=== PATIENT | male | born 2000 | race Hispanic/Latino ===

== ENCOUNTER 2021-03-24 23:46 | Emergency (ER) | payer OTHER ==
[~2021-03-24] VITALS: Ht 180.3 cm; Wt 77.1 kg
[2021-03-25] MEDS ORDERED: IBUPROFEN 600 MG TAB ONE (01:01)
[2021-03-25] MEDS ORDERED: AZITHROMYCIN250 MG PO (01:29)
[2021-03-25] MEDS ORDERED: IBUPROFEN 600 MG TAB PO STA (01:44)
[2021-03-25] MEDS ORDERED: ACETAMINOPHEN 325 MG TAB PO ONE (01:45)
[2021-03-25] MEDS ORDERED: ACETAMINOPHEN 325 MG TAB ONE (01:51)
== END 2021-03-25 01:47 | disposition home or self-care (01) ==
LOC: FSED 03-25 00:15
DX: R50.9 Fever, unspecified (principal); J02.0 Streptococcal pharyngitis; R51.9 Headache, unspecified
CPT/HCPCS: 83518; 99283

== ENCOUNTER 2021-07-03 10:54 | Emergency (ER) | payer OTHER ==
[~2021-07-03] VITALS: Ht 177.8 cm; Wt 73.5 kg
[~2021-07-03 10:54] MED LIST: AZITHROMYCIN250 MG PO
[2021-07-03] MEDS ORDERED: IBUPROFEN 600 MG TAB PO STA (12:13)
[2021-07-03] MEDS ORDERED: DEXAMETHASONE SOD PHOS 10 MG/1 ML VIAL IM ONE (12:15)
[2021-07-03] MEDS ORDERED: PENICILLIN V P500 MG PO (12:27)
[2021-07-03] MEDS ORDERED: DEXAMETHASONE SOD PHOS INJ 4 MG/ML SDV ONE (12:49)
[2021-07-03] MEDS ORDERED: IBUPROFEN 600 MG TAB ONE (12:49)
== END 2021-07-03 12:48 | disposition home or self-care (01) ==
LOC: FSED 11:45
DX: J02.0 Streptococcal pharyngitis (principal); R50.9 Fever, unspecified; F17.210 Nicotine dependence, cigarettes, uncomplicated
CPT/HCPCS: 83518; 96372; 99283; J1100

== ENCOUNTER 2021-07-05 20:25 | Observation (INO) | payer OTHER ==
[~2021-07-05] VITALS: Ht 177.8 cm; Wt 73.5 kg
[~2021-07-05 20:25] MED LIST changes: +PENICILLIN V P500 MG PO
[2021-07-05] MEDS ORDERED: DEXAMETHASONE SOD PHOS 10 MG/1 ML VIAL IM STA (21:44)
[2021-07-05] MEDS ORDERED: Clindamycin INJ 900 MG 900 MG in SODIUM CHLORIDE 0.9% 50ML 50 ML IV STA (21:44)
[2021-07-05] MEDS ORDERED: DEXAMETHASONE SOD PHOS 10 MG/1 ML VIAL ONE (21:54)
[2021-07-05 21:56] LABS: BASOPHILS # (AUTO) 0.1 (0.0-0.1); BASOPHILS % 0.4 % (0.0-1.0); EOSINOPHILS # (AUTO) 0.2 (0.0-0.4); EOSINOPHILS % 0.9 % (0.0-6.0); HEMATOCRIT 46.6 % (38.2-49.6); HEMOGLOBIN 16.5 g/dL (14.0-18.0); LYMPHOCYTES # (AUTO) 2.2 (1.0-3.2); LYMPHOCYTES % 12.2 % (18.0-39.1); MEAN CORPUSCULAR HEMOGLOBIN 30.4 pg (28-32); MEAN CORPUSCULAR HGB CONC 35.4 g/dL (31-35); MEAN CORPUSCULAR VOLUME 85.8 fL (81-99); MONOCYTES # (AUTO) 1.5 (0.2-0.8); MONOCYTES % 8.1 % (4.4-11.3); PLATELET COUNT 313 x10e3/uL (140-360); RED BLOOD COUNT 5.43 x10e6/uL (4.3-5.7); RED CELL DISTRIBUTION WIDTH 13.1 % (11.7-14.4)
[2021-07-05] MEDS ORDERED: Clindamycin INJ 300 MG/50 ML 50 ML IV ONE (21:58)
[2021-07-05 22:11] LABS: ALBUMIN 4.3 g/dL (3.5-5.0); ALBUMIN/GLOBULIN RATIO 1.1 (0.8-2.0); CALCIUM 9.5 mg/dL (8.4-10.2); CREATININE, SERUM 0.82 mg/dL (0.72-1.25)
[2021-07-05] MEDS ORDERED: SODIUM CHLORIDE 0.9% 50ML 50 ML ONE (22:47)
[2021-07-05] MEDS ORDERED: IOPAMIDOL 370 MG/ML 200 ML INFUS..BTL INJ ONE (22:48)
[2021-07-05] MEDS ORDERED: ONDANSETRON HCL INJ 2MG/ML 2ML 2 MG/ML VIAL IV PRN (23:45)
[2021-07-05] MEDS: SODIUM CHLORIDE 0.9% 1000ML 1,000 ML IV SCH (23:45)
[2021-07-05] MEDS ORDERED: Morphine 4mg Syringe 4 MG/ML INJ IV PRN (23:45)
[2021-07-06] VITALS (8 sets, daily range): BP systolic 115–121; BP diastolic 61–73
[2021-07-06] MEDS: Clindamycin INJ 600 MG 600 MG in SODIUM CHLORIDE 0.9% 50ML 50 ML IV SCH ×4 (00:30→17:53)
[2021-07-06] MEDS: METHYLPREDNISOLONE SOD SUCC 40 MG/ML VIAL 1ML IV SCH ×4 (00:30→17:53)
[2021-07-06] MEDS ORDERED: METOPROLOL TARTRATE INJ 1 MG/ML VIAL IV PRN (00:45)
[2021-07-06] MEDS ORDERED: POLYETHYLENE GLYCOL 3350 17 GM PACK PO PRN (00:45)
[2021-07-06] MEDS ORDERED: ACETAMINOPHEN 325 MG TAB PO PRN (00:45)
[2021-07-06 01:41] LABS: CLARITY,URINE CLEAR (CLEAR); COLOR,URINE AMBER (YELLOW); KETONES,URINE 2+ (NEGATIVE); LEUKOCYTE ESTERASE ,URINE NEGATIVE (NEGATIVE); NITRITE,URINE NEGATIVE (NEGATIVE); PROTEIN,URINE DIPSTICK NEGATIVE (NEGATIVE); URINE UROBILINOGEN >=8 mg/dL (0.2 - 1)
[2021-07-06 01:45] LABS: AMORPHOUS SEDIMENT,URINE FEW (FEW); BACTERIA,URINE FEW /HPF; EPITHELIAL CELLS,URINE FEW /LPF; RBC,URINE 0-5 /HPF (0-5); WBC,URINE (MAN) 0-5 /HPF (0-5)
[2021-07-06] MEDS ORDERED: CITALOPRAM HBR20 MG PO (02:44)
[2021-07-06] MEDS: DOCUSATE SODIUM 100 MG CAP PO SCH ×2 (08:11→16:25)
[2021-07-06] MEDS: FAMOTIDINE 20 MG TAB PO SCH ×2 (08:11→16:25)
[2021-07-06] MEDS: SODIUM CHLORIDE 0.9% 1000ML 1,000 ML IV SCH ×3 (08:11→23:57)
[2021-07-06 08:21] LABS: BASOPHILS % 0.1 % (0.0-1.0); HEMATOCRIT 47.7 % (38.2-49.6); HEMOGLOBIN 16.5 g/dL (14.0-18.0); LYMPHOCYTES # (AUTO) 1.2 (1.0-3.2); LYMPHOCYTES % 8.8 % (18.0-39.1); MEAN CORPUSCULAR HEMOGLOBIN 30.2 pg (28-32); MEAN CORPUSCULAR HGB CONC 34.6 g/dL (31-35); MEAN CORPUSCULAR VOLUME 87.2 fL (81-99); MONOCYTES # (AUTO) 0.1 (0.2-0.8); MONOCYTES % 0.7 % (4.4-11.3); PLATELET COUNT 307 x10e3/uL (140-360); RED BLOOD COUNT 5.47 x10e6/uL (4.3-5.7); RED CELL DISTRIBUTION WIDTH 12.8 % (11.7-14.4)
[2021-07-06 08:38] LABS: ALBUMIN 4.1 g/dL (3.5-5.0); ALBUMIN/GLOBULIN RATIO 0.9 (0.8-2.0); ANION GAP 13.6 mmol/L (8-16); CALCIUM 9.8 mg/dL (8.4-10.2); CREATININE, SERUM 0.84 mg/dL (0.72-1.25); POTASSIUM 4.6 mmol/L (3.5-5.1)
[2021-07-06 09:11] LABS: THYROID STIMULATING HORMONE 0.508 uIU/mL (0.350-4.940)
[2021-07-06 09:18] LABS: CHOL/HDL RATIO 2.9 (3.9-4.7); MAGNESIUM 2.3 MG/DL (1.3-2.1); PHOSPHORUS 4.7 MG/DL (2.3-4.7)
[2021-07-06] MEDS ORDERED: CITALOPRAM HYDROBROMIDE 20 MG TAB PO PRN (11:30)
[2021-07-06 16:22] LABS: HIV 1&2 AB SCREEN NON-REACTIVE (NONREACTIVE)
[2021-07-06] MEDS: CEFTRIAXONE 2 GM in SODIUM CHLORIDE 0.9% 100 ML IV SCH (16:24)
[2021-07-06] MEDS ORDERED: CEFTRIAXONE 2 GM VIAL ONE (16:32)
[2021-07-06] MEDS ORDERED: SODIUM CHLORIDE 0.9% 100 ML ONE (16:34)
[2021-07-07] VITALS (7 sets, daily range): BP systolic 101–115; BP diastolic 56–96
[2021-07-07] MEDS: Clindamycin INJ 600 MG 600 MG in SODIUM CHLORIDE 0.9% 50ML 50 ML IV SCH ×3 (00:09→12:35)
[2021-07-07] MEDS: METHYLPREDNISOLONE SOD SUCC 40 MG/ML VIAL 1ML IV SCH ×3 (00:09→12:35)
[2021-07-07 05:02] LABS: BASOPHILS % 0.2 % (0.0-1.0); HEMATOCRIT 42.7 % (38.2-49.6); HEMOGLOBIN 14.7 g/dL (14.0-18.0); LYMPHOCYTES # (AUTO) 1.1 (1.0-3.2); LYMPHOCYTES % 5.9 % (18.0-39.1); MEAN CORPUSCULAR HEMOGLOBIN 29.8 pg (28-32); MEAN CORPUSCULAR HGB CONC 34.4 g/dL (31-35); MEAN CORPUSCULAR VOLUME 86.6 fL (81-99); MONOCYTES # (AUTO) 0.5 (0.2-0.8); MONOCYTES % 2.7 % (4.4-11.3); NEUTROPHILS # (AUTO) 16.5 (2.1-6.9); PLATELET COUNT 322 x10e3/uL (140-360); RED BLOOD COUNT 4.93 x10e6/uL (4.3-5.7); RED CELL DISTRIBUTION WIDTH 12.4 % (11.7-14.4)
[2021-07-07 05:31] LABS: ALBUMIN 3.5 g/dL (3.5-5.0); ALBUMIN/GLOBULIN RATIO 0.9 (0.8-2.0); ANION GAP 10.9 mmol/L (8-16); CALCIUM 8.9 mg/dL (8.4-10.2); CREATININE, SERUM 0.73 mg/dL (0.72-1.25); POTASSIUM 4.9 mmol/L (3.5-5.1)
[2021-07-07] MEDS: FAMOTIDINE 20 MG TAB PO SCH ×2 (07:53→16:56)
[2021-07-07] MEDS: SODIUM CHLORIDE 0.9% 1000ML 1,000 ML IV SCH ×2 (07:53→15:45)
[2021-07-07] MEDS: DOCUSATE SODIUM 100 MG CAP PO SCH ×2 (08:43→16:56)
[2021-07-07] MEDS ORDERED: CLEOCIN HCL300 MG PO ×2 (16:55→17:08)
[2021-07-07] MEDS: CEFTRIAXONE 2 GM in SODIUM CHLORIDE 0.9% 100 ML IV SCH (16:56)
== END 2021-07-07 18:03 | disposition home or self-care (01) ==
LOC: ER 20:44 → ERHOLD 23:49 → MED/SURG2 07-06 01:39
PROVIDERS: ADMIT Internal Medicine; ATTEND Internal Medicine
DX: J03.90 Acute tonsillitis, unspecified (principal); A41.9 Sepsis, unspecified organism; F41.9 Anxiety disorder, unspecified; Z88.0 Allergy status to penicillin; Z88.2 Allergy status to sulfonamides; Z20.822 Contact with and (suspected) exposure to COVID-19; R59.9 Enlarged lymph nodes, unspecified; E80.6 Other disorders of bilirubin metabolism
CPT/HCPCS: 36415 ×3; 70491; 80053 ×3; 80061; 81001; 83036; 83605; 83735; 84100; 84443; 85025 ×3; 87040; 87390; 94799 ×2; 99284; G0378 ×3; G0433; G0435; J0696 ×2; J1100; J2920 ×2; J7030; J7050 ×2; Q9967; U0002

== ENCOUNTER 2021-09-23 13:52 | Emergency (ER) | payer OTHER ==
[~2021-09-23] VITALS: Ht 180.3 cm; Wt 71.2 kg
[~2021-09-23 13:52] MED LIST changes: +CITALOPRAM HBR20 MG PO; +CLEOCIN HCL300 MG PO
[2021-09-23] MEDS ORDERED: CLEOCIN HCL300 MG PO (18:24)
[2021-09-23] MEDS ORDERED: MEDROL4 MG PO (18:25)
== END 2021-09-23 18:34 | disposition home or self-care (01) ==
LOC: FSED 15:42
DX: J02.9 Acute pharyngitis, unspecified (principal)
CPT/HCPCS: 83518; 87400; 99282

== ENCOUNTER 2021-11-27 17:25 | Emergency (ER) | payer OTHER ==
[~2021-11-27] VITALS: Ht 182.9 cm; Wt 77.1 kg
[~2021-11-27 17:25] MED LIST changes: +MEDROL4 MG PO
[2021-11-27] MEDS ORDERED: KETOROLAC TROMETHAMINE 30 MG/ML VIAL IV STA (18:40)
[2021-11-27] MEDS ORDERED: SODIUM CHLORIDE 0.9% 1000ML 1,000 ML IV SCH ×2 (18:45→20:15)
[2021-11-27 18:58] LABS: BASOPHILS # (AUTO) 0.1 (0.0-0.1); BASOPHILS % 0.3 % (0.0-1.0); EOSINOPHILS # (AUTO) 0.2 (0.0-0.4); EOSINOPHILS % 1.2 % (0.0-6.0); HEMATOCRIT 47.9 % (38.2-49.6); HEMOGLOBIN 16.4 g/dL (14.0-18.0); LYMPHOCYTES # (AUTO) 0.8 (1.0-3.2); LYMPHOCYTES % 5.2 % (18.0-39.1); MEAN CORPUSCULAR HEMOGLOBIN 30.1 pg (28-32); MEAN CORPUSCULAR HGB CONC 34.2 g/dL (31-35); MEAN CORPUSCULAR VOLUME 87.9 fL (81-99); MONOCYTES # (AUTO) 0.9 (0.2-0.8); MONOCYTES % 5.9 % (4.4-11.3); NEUTROPHILS # (AUTO) 13.1 (2.1-6.9); NEUTROPHILS % 87.1 % (38.7-80.0); PLATELET COUNT 200 x10e3/uL (140-360); RED BLOOD COUNT 5.45 x10e6/uL (4.3-5.7); RED CELL DISTRIBUTION WIDTH 13.4 % (11.7-14.4)
[2021-11-27 19:23] LABS: ALBUMIN 4.5 g/dL (3.5-5.0); ALBUMIN/GLOBULIN RATIO 1.2 (0.8-2.0); ANION GAP 16.3 mmol/L (8-16); CALCIUM 9.1 mg/dL (8.4-10.2); CREATININE, SERUM 0.82 mg/dL (0.72-1.25); POTASSIUM 4.3 mmol/L (3.5-5.1)
[2021-11-27] MEDS ORDERED: IOPAMIDOL 370 MG/ML 100 ML INFUS..BTL INJ ONE (19:58)
[2021-11-27] MEDS ORDERED: DEXAMETHASONE SOD PHOS 10 MG/1 ML VIAL IV ONE (20:15)
[2021-11-27] MEDS ORDERED: DEXAMETHASONE SOD PHOS 10 MG/1 ML VIAL ONE (20:32)
[2021-11-27 21:01] VITALS: BP 106/68
== END 2021-11-27 21:02 | disposition other institution (70) ==
LOC: ER 17:44
DX: J03.90 Acute tonsillitis, unspecified (principal); R50.9 Fever, unspecified; Z20.822 Contact with and (suspected) exposure to COVID-19
CPT/HCPCS: 0223U; 36415; 70491; 80053; 83605; 85025; 87040; 99284; J0295; J1100; J1885; J7030; J7050; Q9967

== ENCOUNTER 2022-10-12 03:09 | Emergency (ER) | payer OTHER ==
[~2022-10-12] VITALS: Ht 210.8 cm; Wt 77.1 kg
[~2022-10-12 03:09] MED LIST changes: +AZITHROMYCIN500 MG PO
[2022-10-12 03:14] VITALS: O2SAT 100
[2022-10-12] MEDS ORDERED: CLINDAMYCIN HCL 150 MG CAP PO STA (03:16)
[2022-10-12] MEDS ORDERED: PREDNISONE 20 MG TAB PO STA (03:16)
[2022-10-12] MEDS ORDERED: CLINDAMYCIN HC300 MG PO (03:26)
[2022-10-12] MEDS ORDERED: PREDNISONE20 MG PO (03:26)
== END 2022-10-12 03:55 | disposition home or self-care (01) ==
LOC: ER 03:18
DX: R50.9 Fever, unspecified (principal); J02.0 Streptococcal pharyngitis; J45.909 Unspecified asthma, uncomplicated
CPT/HCPCS: 83518; 99283; J7512

== ENCOUNTER 2023-05-07 17:43 | Emergency (ER) | payer OTHER ==
[~2023-05-07] VITALS: Ht 180.3 cm; Wt 80.3 kg
[~2023-05-07 17:43] MED LIST changes: +CLINDAMYCIN HC300 MG PO; +PREDNISONE20 MG PO
[2023-05-07] MEDS ORDERED: DEXAMETHASONE 4 MG TAB PO STA (18:44)
[2023-05-07 19:41] LABS: INFLUENZAE A&B ANTIGEN (RAPID) NEGATIVE (NEGATIVE); RESPIRATORY SYNC. VIRUS NEGATIVE (NEGATIVE)
[2023-05-07] MEDS ORDERED: SINGULAIR10 MG PO (20:05)
[2023-05-07] MEDS ORDERED: MUCINEX DM ER1 EAC1 PO (20:05)
[2023-05-07 20:14] VITALS: O2SAT 98
== END 2023-05-07 20:17 | disposition home or self-care (01) ==
LOC: ER 18:08
DX: R05.9 Cough, unspecified (principal); J06.9 Acute upper respiratory infection, unspecified; J45.909 Unspecified asthma, uncomplicated; F41.9 Anxiety disorder, unspecified; F32.A Depression, unspecified
CPT/HCPCS: 87400; 87420; 99283; J8540; U0002

== ENCOUNTER 2024-04-11 01:54 | Emergency (ER) | payer BC, OTHER ==
[~2024-04-11] VITALS: Ht 180.3 cm; Wt 80.3 kg
[~2024-04-11 01:54] MED LIST changes: +MUCINEX DM ER1 EAC1 PO; +SINGULAIR10 MG PO; +VENTOLIN HFA18 GM INH
[2024-04-11] MEDS ORDERED: MEDROL4 M2 PO (02:09)
[2024-04-11] MEDS ORDERED: CEFDINIR300 MG PO (02:09)
[2024-04-11] MEDS: CEFDINIR 300 MG CAP PO ONE (02:14)
[2024-04-11] MEDS: ACETAMINOPHEN 325 MG TAB PO ONE (02:14)
[2024-04-11] MEDS: DEXAMETHASONE SOD PHOS 10 MG/1 ML VIAL IM ONE (02:15)
[2024-04-11] MEDS: IBUPROFEN 600 MG TAB PO STA (03:06)
[2024-04-11 03:31] VITALS: PULSE 94; RESP 16; TEMP 100.4; O2SAT 100
== END 2024-04-11 03:33 | disposition home or self-care (01) ==
LOC: ER 02:00
DX: R50.9 Fever, unspecified (principal); J03.90 Acute tonsillitis, unspecified; J45.909 Unspecified asthma, uncomplicated; F41.9 Anxiety disorder, unspecified; F32.A Depression, unspecified
CPT/HCPCS: 99283; J1100